=== PATIENT | female | born 1965 | race Caucasian/White ===

== ENCOUNTER 2019-05-28 17:26 | Emergency (ER) | payer SELFPAY ==
[~2019-05-28] VITALS: Ht 149.9 cm; Wt 58.0 kg
[2019-05-28 17:43] VITALS: BP 131/77
== END 2019-05-28 21:36 | disposition left against medical advice (07) ==
LOC: ER 17:26
DX: Z53.21 Procedure and treatment not carried out due to patient leaving prior to being seen by health care provider (principal)